=== PATIENT | female | born 1960 ===

== ENCOUNTER 2018-06-22 09:50 | Outpatient (CLI) | payer OTHER | END 2018-06-22 10:05 | disposition home or self-care (01) | LOC: SONOGRAMA 09:50 | DX: G57.02 Lesion of sciatic nerve, left lower limb (principal) ==

== ENCOUNTER 2020-03-09 07:17 | Outpatient (CLI) | payer OTHER | END 2020-03-09 08:02 | disposition home or self-care (01) | LOC: RAD 07:17 → MRI 07:45 → RAD 08:02 | DX: I95.1 Orthostatic hypotension (principal); G45.8 Other transient cerebral ischemic attacks and related syndromes; R07.89 Other chest pain; R00.2 Palpitations; M25.552 Pain in left hip; R94.5 Abnormal results of liver function studies; Z12.31 Encounter for screening mammogram for malignant neoplasm of breast ==

== ENCOUNTER → 2020-03-09 09:37 | Outpatient (CLI) | payer OTHER | END | disposition home or self-care (01) | LOC: LAB 09:37 | PROVIDERS: ATTEND Radiology Diagnostic Radiology | DX: N20.0 Calculus of kidney (principal); Z12.11 Encounter for screening for malignant neoplasm of colon; Z13.6 Encounter for screening for cardiovascular disorders; Z13.1 Encounter for screening for diabetes mellitus; Z11.3 Encounter for screening for infections with a predominantly sexual mode of transmission ==

== ENCOUNTER 2020-03-12 08:45 | Outpatient (CLI) | payer OTHER | END 2020-03-12 08:57 | disposition home or self-care (01) | LOC: MRI 08:45 | DX: I95.1 Orthostatic hypotension (principal); G45.8 Other transient cerebral ischemic attacks and related syndromes; R07.89 Other chest pain; R00.2 Palpitations; R93.5 Abnormal findings on diagnostic imaging of other abdominal regions, including retroperitoneum | CPT/HCPCS: 70545; 70552; 74182 ==

== ENCOUNTER 2020-03-13 10:37 | Outpatient (CLI) | payer OTHER | END 2020-03-13 15:00 | disposition home or self-care (01) | LOC: LAB 10:37 | DX: Z00.00 Encounter for general adult medical examination without abnormal findings (principal); Z78.0 Asymptomatic menopausal state; Z12.11 Encounter for screening for malignant neoplasm of colon; Z13.6 Encounter for screening for cardiovascular disorders ==

== ENCOUNTER 2021-01-13 13:45 | Emergency (ER) | payer OTHER ==
[~2021-01-13] VITALS: Ht 162.6 cm; Wt 68.9 kg
[2021-01-13] MEDS ORDERED: PROZAC10 MG (13:56)
[2021-01-13] MEDS ORDERED: SKELAGESIC PO (16:12)
== END 2021-01-13 16:44 | disposition home or self-care (01) ==
LOC: ER 13:45
DX: S60.221A Contusion of right hand, initial encounter (principal); S90.111A Contusion of right great toe without damage to nail, initial encounter; W18.39XA Other fall on same level, initial encounter; Y93.11 Activity, swimming; Y92.098 Other place in other non-institutional residence as the place of occurrence of the external cause; Y99.8 Other external cause status

== ENCOUNTER 2021-01-29 11:09 | Outpatient (CLI) | payer OTHER ==
[~2021-01-29 11:09] MED LIST: PROZAC10 MG; SKELAGESIC PO
== END 2021-01-29 11:21 | disposition home or self-care (01) ==
LOC: TOM 11:09
PROVIDERS: ATTEND Orthopaedic Surgery
DX: S60.221D Contusion of right hand, subsequent encounter (principal)
CPT/HCPCS: 73218

== ENCOUNTER → 2021-03-20 | Outpatient (CLI) | payer OTHER | END | disposition home or self-care (01) | LOC: MAMO-SONO 10:30 | DX: E04.1 Nontoxic single thyroid nodule (principal); Z12.31 Encounter for screening mammogram for malignant neoplasm of breast; N64.89 Other specified disorders of breast ==